=== PATIENT | male | born 1955 | race Caucasian/White ===

== ENCOUNTER → 2020-01-09 12:29 | Outpatient (CLI) | payer OTHER, SELFPAY ==
--- NOTE | 2020-01-09 | DI.MRI.S_ITS ---
PROCEDURE: MR HEAD/BRAIN WO/W CON INDICATIONS: Dizziness and giddiness TECHNIQUE: Noncontrast axial T1 spin echo, axial T2 fast spin echo, sagittal and axial FLAIR, coronal T2 fast spin echo, axial gradient echo, axial diffusion and ADC through the brain. After the administration of contrast, axial and coronal T1 spin echo with fat saturation through the brain. COMPARISON: None. FINDINGS: Image quality: Excellent. CSF spaces: Basal cisterns are patent. No extra-axial fluid collections. Ventricles are normal in size and shape. Brain: No midline shift. No intracranial bleeds or masses. No abnormal intracranial enhancement. There is cerebral volume loss for age. There is periventricular white matter chronic small vessel ischemic change. The brainstem appears normal. Diffusion-weighted images demonstrate no acute ischemic insults. No chronic ischemic insults. Normal intravascular flow voids are present. Skull and face: Calvarial marrow is normal in signal. Orbits appear normal. Sinuses: Sinuses and mastoids appear clear. IMPRESSION: 1. No acute intracranial process. 2. Mild atrophy and chronic microvascular ischemic changes. Dictated by: Marya Bucio M.D. on 01/09/2020 at 15:58 Approved by: Marya Bucio M.D. on 01/09/2020 at 15:59
== END ==
PROVIDERS: PCP Family Medicine; Referring Provider Family Medicine; Visit Provider Physician Assistant
DX: R42 Dizziness and giddiness (principal)
CPT/HCPCS: 70553; A9579

== ENCOUNTER 2020-01-18 11:26 | Outpatient (RCR) | payer OTHER, SELFPAY ==
[2020-01-18 11:45] VITALS: BP 145/74; BP 156/86
--- NOTE | 2020-01-18 14:17 | PT.OIE ---
Current Diagnoses Benign paroxysmal vertigo, unspecified ear (01/18/20) Dizziness and giddiness (01/18/20) Visit Care Team Role Provider Type Piyush Young MD Primary Care Provider Non-Staff Specialty: Family Practice Address: [address] , [address], [place], [address] Email: Gustavo Woo MD Attending Provider Physician Referring Provider Specialty: Ear, Nose, Throat Address: [address] [place] [address], [id number] Email: [email or web address] Physical Therapy Initial Evaluation PT-OP-A Visit Information Start: 01/18/20 13:52 Freq: Status: Active Protocol: Document 01/18/20 11:45 DCW (Rec: 01/18/20 14:17 DCW [id number]) Out-Patient Physical Therapy Visit Information Visit Information Visit Type Initial Evaluation Visit Start Time 11:45 Visit Stop Time 12:30 Total Visit Minutes 45 Visit Number 1 Number of MAGNET MAKER Visits 0 Evaluation Information Evaluation Date 01/18/20 PT-OP-B Current Condition Start: 01/18/20 13:52 Freq: Status: Active Protocol: Document 01/18/20 11:45 DCW (Rec: 01/18/20 14:17 DCW [id number]) Current Condition History of Current Condition Onset Date Multi-year history Current Complaints Occasional dizziness with changes in position History of Current Condition Pt is a 64 year old male presenting with a multi-year history of a feeling of imbalance with position changes, particularly when getting up out of bed. Pt reports he typically is able to stand up and take 2-3 steps forward, then suddenly feels fleetingly off-balance, which lasts 3-4 seconds. Pt reports this seems to happen occasionally over the course of 3-4 weeks, and then will go away and does not happen any more for months, and the cycle then starts all over again. Pt recently had a brain MRI which was negative for any cause of these symptoms. Pt notes he recently went through a 24-hour period of blood pressure monitoring, but has not gotten results yet, although admits his BP is usually a little high. Prior Treatments and Tests Brain MRI: IMPRESSION: 1. No acute intracranial process. 2. Mild atrophy and chronic microvascular ischemic changes . Per: Marya Bucio M.D. on 12/2019 Future Testing and Treatments Planned Possible VNG PT-OP-C Subjective Start: 01/18/20 13:52 Freq: Status: Active Protocol: Document 01/18/20 11:45 DCW (Rec: 01/18/20 14:17 DCW [id number]) OP-PT Subjective Patient Comments Patient Comments I might be on the back end of this 3-4 week episode, so I'm not really symptomatic at the moment. Patient Reported Progress Improving Patient Questionnaires ABC- Activity Specific Balance Confidence Scale ABC Score 86.25% ABC Functional Impairment 1 to <20% Impaired (Score 81- 99) Dizziness Handicap Inventory DHI Score 18% DHI Functional Impairment 1 to 19% Impaired (Score 1-19) PT-OP-H Neuro Start: 01/18/20 13:52 Freq: Status: Active Protocol: Document 01/18/20 11:45 DCW (Rec: 01/18/20 14:17 DCW [id number]) Sensation Evaluation Gross Sensation Gross Sensation WNL Location Details Right Foot Light Touch Intact/Normal Proprioception (Position) Intact/Normal Kinesthesia (Movement) Intact/Normal Left Foot Light Touch Intact/Normal Proprioception (Position) Intact/Normal Kinesthesia (Movement) Intact/Normal Vital Signs Blood Pressure Standing Blood Pressure (90/60-120/80 mmHg) 156/86 H Blood Pressure Source Automatic Cuff,Left Upper Extremity Supine Blood Pressure (90/60-120/80 mmHg) 145/74 H Blood Pressure Source Automatic Cuff,Left Upper Extremity PT-OP-O Vestibular Start: 01/18/20 13:52 Freq: Status: Active Protocol: Document 01/18/20 11:45 DCW (Rec: 01/18/20 14:17 DCW [id number]) Vestibular Assessment Screening Tests Vestibular Artery Screen Negative Sharp-Nadia Test Negative Auditory Tests Fink Test Negative Rinne Test Negative Air Conduction Results Equal Visual Testing Smooth Pursuits Horizontal WNL Smooth Pursuits Vertical WNL Saccades Horizontal WNL Gaze Evoked Nystagmus With Fixation Negative Gaze Evoked Nystagmus Without Fixation equip mal Heave Test Negative Thrust Head Negative Positional Testing [place]-Hallpike Negative Left,Negative Right Rolling Test Negative Left,Negative Right Supine to Sit Negative Vestibular Function Tests CTSIB Position 1 30 seconds CTSIB Position 2 30 seconds CTSIB Position 3 30 seconds CTSIB Position 4 30 seconds CTSIB Position 5 30 seconds CTSIB Position 6 30 seconds PT-OP-T Assessment and Plan Start: 01/18/20 13:52 Freq: Status: Active Protocol: Document 01/18/20 11:45 DCW (Rec: 01/18/20 14:17 DCW [id number]) Physical Therapy Assessment Rehab Potential Rehabilitation Potential Good Evaluation Complexity Number of Personal Factors/Comorbidities 0 Number of Body Systems Impaired 1-2 Clinical Presentation at Evaluation Stable Impairments Impairments Balance,Vestibular Goals One Impairment Imbalance upon first standing Custodial Goal (LTG) Pt to report no imbalance upon rising from bed or chair for 2 weeks to display decreased falls risk. LTG Duration 02/18/20 Assessment Summary Assessment Pt currently presents with an entirely negative vestibular examination. Unable to provoke symptoms with any positioning or movement throughout examination today. Pt's symptoms are difficult to categorize for Ddx. The cyclical nature of his symptoms are more like the waxing and waning occasionally seen with BPPV or the episodic nature of Meniere's disease, however his reported symptoms do not fit with either of these disorders. Pt' s subjective symptoms are much more suggestive of Orthostatic Hypotension, but his BP measurements today did not reflect this, and it would be unusual to experience orthostatic hypotension for only 3-4 weeks every few months with no other changes. Further testing will need to be performed at his next visit to rule in or out other possibilities, but at this time, there does not seem to be a true vestibular component to his symptoms. Unclear at this time if pt will benefit from further skilled physical or vestibular therapy, pending further testing. Physical Therapy Plan Frequency and Duration Frequency of Treatment 2x/Week Duration of Treatment 6 weeks Plan of Care Start Date 01/18/20 Plan of Care End Date 02/29/20 Therapeutic Interventions Therapeutic Interventions Balance Training,Canalithic Repositioning,Patient/ Caregiver Education,Self-Care/ Home Management,Vestibular Rehabilitation Next Visit Focus/Plan Next Note Type Treatment Note Next Visit Plan Further vestibular testing, re -testing orthostatics
--- NOTE | 2020-01-18 14:19 | PT.OPPOC ---
Physical, Occupational & Speech Therapy At [facility] Current Diagnoses Benign paroxysmal vertigo, unspecified ear (01/18/20) Dizziness and giddiness (01/18/20) Visit Care Team Role Provider Type Piyush Young MD Primary Care Provider Non-Staff Specialty: Family Practice Address: [address] [place], [place] [address] , [address] [place] [address], [address] Email: Gustavo Woo MD Attending Provider Physician Referring Provider Specialty: Ear, Nose, Throat Address: [address] [place] [address], [address] Email: [email or web address] Plan Of Care PT-OP-T Assessment and Plan Start: 01/18/20 13:52 Freq: Status: Active Protocol: Document 01/18/20 11:45 DCW (Rec: 01/18/20 14:17 DCW [id number]) Physical Therapy Assessment Rehab Potential Rehabilitation Potential Good Evaluation Complexity Number of Personal Factors/Comorbidities 0 Number of Body Systems Impaired 1-2 Clinical Presentation at Evaluation Stable Impairments Impairments Balance,Vestibular Goals One Impairment Imbalance upon first standing Family Sociologist Goal (LTG) Pt to report no imbalance upon rising from bed or chair for 2 weeks to display decreased falls risk. LTG Duration 02/18/20 Assessment Summary Assessment Pt currently presents with an entirely negative vestibular examination. Unable to provoke symptoms with any positioning or movement throughout examination today. Pt's symptoms are difficult to categorize for Ddx. The cyclical nature of his symptoms are more like the waxing and waning occasionally seen with BPPV or the episodic nature of Meniere's disease, however his reported symptoms do not fit with either of these disorders. Pt' s subjective symptoms are much more suggestive of Orthostatic Hypotension, but his BP measurements today did not reflect this, and it would be unusual to experience orthostatic hypotension for only 3-4 weeks every few months with no other changes. Further testing will need to be performed at his next visit to rule in or out other possibilities, but at this time, there does not seem to be a true vestibular component to his symptoms. Unclear at this time if pt will benefit from further skilled physical or vestibular therapy, pending further testing. Physical Therapy Plan Frequency and Duration Frequency of Treatment 2x/Week Duration of Treatment 6 weeks Plan of Care Start Date 01/18/20 Plan of Care End Date 02/29/20 Therapeutic Interventions Therapeutic Interventions Balance Training,Canalithic Repositioning,Patient/ Caregiver Education,Self-Care/ Home Management,Vestibular Rehabilitation Next Visit Focus/Plan Next Note Type Treatment Note Next Visit Plan Further vestibular testing, re -testing orthostatics Plan of Care Dates Plan of Care Start Date 01/18/20 Plan of Care End Date 02/29/20 Electronically Signed by: Satnam Valverde, PT 01/18/20 [id number] Please Sign and Return: I have reviewed this Plan of Care and certify that the skilled therapy services above are required to meet the patient?s needs. Physician Signature Date Printed Name and Credentials Clinical Instructor Signature Printed Name and Credentials
--- NOTE | 2020-05-18 15:41 | PT.OPDS ---
Current Diagnoses Benign paroxysmal vertigo, unspecified ear (01/18/20) Dizziness and giddiness (01/18/20) Visit Care Team Role Provider Type Piyush Young MD Primary Care Provider Non-Staff Specialty: Family Practice Address: [address] , [address], [address] Email: Gustavo Woo MD Attending Provider Physician Referring Provider Specialty: Ear, Nose, Throat Address: [address] [place] [address], [address] Email: [email or web address] Visit Number Visit Number 1 Discharge Summary PT-OP-B Current Condition Start: 01/18/20 13:52 Freq: Status: Active Protocol: Document 01/18/20 11:45 DCW (Rec: 01/18/20 14:17 DCW [id number]) Current Condition History of Current Condition Onset Date Multi-year history Current Complaints Occasional dizziness with changes in position History of Current Condition Pt is a 64 year old male presenting with a multi-year history of a feeling of imbalance with position changes, particularly when getting up out of bed. Pt reports he typically is able to stand up and take 2-3 steps forward, then suddenly feels fleetingly off-balance, which lasts 3-4 seconds. Pt reports this seems to happen occasionally over the course of 3-4 weeks, and then will go away and does not happen any more for months, and the cycle then starts all over again. Pt recently had a brain MRI which was negative for any cause of these symptoms. Pt notes he recently went through a 24-hour period of blood pressure monitoring, but has not gotten results yet, although admits his BP is usually a little high. Prior Treatments and Tests Brain MRI: IMPRESSION: 1. No acute intracranial process. 2. Mild atrophy and chronic microvascular ischemic changes . Per: Marya Bucio M.D. on 12/2019 Future Testing and Treatments Planned Possible VNG PT-OP-C Subjective Start: 01/18/20 13:52 Freq: Status: Active Protocol: Document 01/18/20 11:45 DCW (Rec: 01/18/20 14:17 DCW [id number]) OP-PT Subjective Patient Comments Patient Comments I might be on the back end of this 3-4 week episode, so I'm not really symptomatic at the moment. Patient Reported Progress Improving Patient Questionnaires ABC- Activity Specific Balance Confidence Scale ABC Score 86.25% ABC Functional Impairment 1 to <20% Impaired (Score 81- 99) Dizziness Handicap Inventory DHI Score 18% DHI Functional Impairment 1 to 19% Impaired (Score 1-19) PT-OP-H Neuro Start: 01/18/20 13:52 Freq: Status: Active Protocol: Document 01/18/20 11:45 DCW (Rec: 01/18/20 14:17 DCW [id number]) Sensation Evaluation Gross Sensation Gross Sensation WNL Location Details Right Foot Light Touch Intact/Normal Proprioception (Position) Intact/Normal Kinesthesia (Movement) Intact/Normal Left Foot Light Touch Intact/Normal Proprioception (Position) Intact/Normal Kinesthesia (Movement) Intact/Normal Vital Signs Blood Pressure Standing Blood Pressure (90/60-120/80 mmHg) 156/86 H Blood Pressure Source Automatic Cuff,Left Upper Extremity Supine Blood Pressure (90/60-120/80 mmHg) 145/74 H Blood Pressure Source Automatic Cuff,Left Upper Extremity PT-OP-O Vestibular Start: 01/18/20 13:52 Freq: Status: Active Protocol: Document 01/18/20 11:45 DCW (Rec: 01/18/20 14:17 DCW [id number]) Vestibular Assessment Screening Tests Vestibular Artery Screen Negative Sharp-Nadia Test Negative Auditory Tests Fink Test Negative Rinne Test Negative Air Conduction Results Equal Visual Testing Smooth Pursuits Horizontal WNL Smooth Pursuits Vertical WNL Saccades Horizontal WNL Gaze Evoked Nystagmus With Fixation Negative Gaze Evoked Nystagmus Without Fixation equip mal Heave Test Negative Thrust Head Negative Positional Testing [place]-Hallpike Negative Left,Negative Right Rolling Test Negative Left,Negative Right Supine to Sit Negative Vestibular Function Tests CTSIB Position 1 30 seconds CTSIB Position 2 30 seconds CTSIB Position 3 30 seconds CTSIB Position 4 30 seconds CTSIB Position 5 30 seconds CTSIB Position 6 30 seconds PT-OP-T Assessment and Plan Start: 01/18/20 13:52 Freq: Status: Active Protocol: Document 05/18/20 15:40 DCW (Rec: 05/18/20 15:41 SUE [id number]) Physical Therapy Assessment Assessment Summary Assessment Upon being contacted to return for PT after the clinic reopened following Covid-19 closure, pt requested discharge.
== END 2020-05-24 13:13 ==
LOC: PHYS 11:26
PROVIDERS: PCP Family Medicine; Referring Provider Otolaryngology; Visit Provider Otolaryngology
DX: H81.10 Benign paroxysmal vertigo, unspecified ear (principal)
CPT/HCPCS: 97161